=== PATIENT | female | born 1930 | race Caucasian/White ===

== ENCOUNTER 2019-02-15 07:37 | Emergency (ER) | payer MEDICARE, BC ==
[~2019-02-15] VITALS: Ht 157.5 cm; Wt 69.2 kg
[~2019-02-15 07:37] MED LIST: AMLO5TAB4 PO; CORE20CR PO; DOCU-144 PO; ENAL20TA PO; HYDR-906 PO; ISOS30TA67 PO; LEVO50TA89 PO; ONDA4TAB8 PO; PANT40TA3 PO
[2019-02-15 07:41] VITALS: Ht 157.5 cm; Wt 69.2 kg
[2019-02-15] MEDS ORDERED: SOD CHLORIDE 0.9% 1,000 ML IV STA (08:48)
[2019-02-15] MEDS ORDERED: ONDANSETRON 4 MG INJ IV STA (08:48)
[2019-02-15] MEDS ORDERED: morphine 2 MG INJ IV STA (08:48)
--- NOTE | 2019-02-15 09:03 | ERD ---
ER Documentation Chief Complaint Chief Complaint ABDOMINAL, LOWER BACK PAIN W/DIARRHEA HPI This is an 88-year-old female with a past medical history of hypertension the presents to the emergency department complaining of abdominal cramping for the past 48 hours. The patient indicates that she has had loose watery stools. She denies any recent antibiotics and has had no recent travel or hospitalizations. She indicates that the abdominal cramping is more prominent in the left lower quadrant. She states that the pain started to radiate to the back. She is had no frequency urgency or dysuria. She had no fevers or shaking or chills. She states the pain worsened this morning which prompted her to come to the emergency department and it is 7 out of 10 in intensity. Her past surgical history includes cholecystectomy. She had no chest pain. She has no productive or nonproductive cough. She is no shortness of breath at rest or exertion. She denies a headache. She said no fevers no shaking no chills. ROS All systems reviewed and are negative except as per history of present illness. Medications Home Meds Reported Medications Olopatadine* (Pataday*) 0.2% - 2.5 Ml Drops, 1 DROP BOTH EYES DAILY, EA 02/15/19 Metoprolol Succinate* (Toprol XL*) 50 Mg Tab.er.24h, 50 MG PO DAILY, #30 TAB 02/15/19 Losartan-Hydrochlorothiazide (Losartan-HCTZ) 100-12.5 Mg Tab, 1 TAB PO DAILY, TAB 02/15/19 Pantoprazole* (Pantoprazole*) 40 Mg Tablet.dr, 40 MG PO AC BREAKFAST, TAB 02/15/19 Levothyroxine Sodium* (Levothyroxine Sodium*) 50 Mcg Tablet, 50 MCG PO BEFORE BREAKFAST, #30 TAB 02/15/19 Amlodipine Besylate* (Norvasc*) 5 Mg Tablet, 5 MG PO DAILY, TAB 02/15/19 Discontinued Reported Medications Enalapril Maleate* (Enalapril Maleate*) 20 Mg Tablet, 20 MG PO BID, TAB 04/12/15 Pantoprazole* (Protonix*) 40 Mg Tablet.dr, 40 MG PO DAILY, TAB 04/12/15 Amlodipine Besylate* (Norvasc*) 5 Mg Tablet, 5 MG PO DAILY, TAB 04/12/15 Carvedilol* (Coreg CR*) 20 Mg Capsr, 20 MG PO DAILY, CAP 04/12/15 Levothyroxine Sodium* (Synthroid*) 50 Mcg Tablet, 50 MCG PO AC BREAKFAST, TAB 04/12/15 Isosorbide Mononitrate* (Isosorbide Mononitrate*) 30 Mg Tab.er.24h, 30 MG PO DAILY, TAB 04/12/15 Discontinued Scripts Docusate Sodium* (Colace*) 100 Mg Capsule, 100 MG PO BID, #20 CAP Prov:AUGUSTIN VINES MD 04/08/16 Hydrocodone Bit-Acetaminophen (Purdon) 5-325 Mg Tablet, 1 TAB PO Q4H PRN for PAIN for 20 Days, TAB Prov:AUGUSTIN VINES MD 04/08/16 Ondansetron Hcl* (Zofran*) 4 Mg Tablet, 4 MG PO Q8H PRN for NAUSEA AND/OR VOMITING, #30 TAB Prov:MARYSOL CHIRINOS MD 04/12/15 Allergies Allergies: Coded Allergies: Penicillins (Verified Allergy, Intermediate, 02/15/19) diltiazem (Verified Allergy, Unknown, 02/15/19) PMhx/Soc History of Surgery: Yes (GALLBLADDER) Anesthesia Reaction: No Hx Neurological Disorder: No Hx Respiratory Disorders: No Hx Cardiac Disorders: Yes (HTN) Hx Psychiatric Problems: No Hx Miscellaneous Medical Probl: No Hx Alcohol Use: No Hx Substance Use: No Hx Tobacco Use: No Smoking Status: Never smoker Physical Exam Vitals Vital Signs Date Temp Pulse Resp B/P (MAP) Pulse Ox O2 O2 Flow FiO2 Time Delivery Rate 02/15/19 76 16 123/60 97 Room Air 13:07 (81) 02/15/19 59 19 131/75 97 Room Air 10:30 (93) 02/15/19 98.1 81 18 158/74 98 07:41 (102) Physical Exam Constitutional:Well-developed. Well-nourished. HEENT:Normocephalic. Atraumatic.Pupils were equal round reactive to light. Moist mucous membranes.No tonsillar exudates. Neck: No nuchal rigidity. No lymphadenopathy. No posterior cervical spine tenderness or step-offs. Respiratory: Not using accessory muscles of respiration.Lungs were clear to auscultation bilaterally. No rhonchi. No rales. No wheezing. Cardiovascular: Regular rate regular rhythm.No murmurs. No rubs were appreciated.S1, S2 normal. Distal pulses are palpable 2+ bilaterally. GI: Abdomen was soft. Left lower quadrant tenderness. Non Distended. No pulsatile abdominal masses or bruits. No rebound. No guarding. Bowel sounds were hyperactive Muscle skeletal: Full range of motion of both the upper and lower extremities bilaterally.Normal muscle tone.No assymetrical calf tenderness or swelling. Skin: No petechia, no purpura. No lesions on the palms or the soles of the feet. No maculopapular rash. NEURO: Patient was alert, awake, orientated x3.No facial droop. Gait observed and normal with no ataxia.Speech had regular rate and rhythm. No focal neurological deficits. Result Diagram: 02/15/1992402/15/19924 Results 24 hrs Laboratory Tests Test 02/15/19 08:56 02/15/19 09:25 Urine Color STRAW Urine Clarity CLEAR Urine pH 7.0 Urine Specific Elizabeth 1.005 Urine Ketones NEGATIVE mg/dL Urine Nitrite NEGATIVE mg/dL Urine Bilirubin NEGATIVE mg/dL Urine Urobilinogen NEGATIVE mg/dL Urine Leukocyte Esterase NEGATIVE [place]/ul Urine Microscopic RBC 1 /HPF Urine Microscopic WBC 1 /HPF Urine Hemoglobin NEGATIVE mg/dL Urine Glucose NEGATIVE mg/dL Urine Total Protein 1+ mg/dl White Blood Count 5.1 10^3/ul Red Blood Count 3.65 10^6/ul Hemoglobin 12.0 g/dl Hematocrit 35.3 % Mean Corpuscular Volume 96.7 fl Mean Corpuscular Hemoglobin 32.9 pg Mean Corpuscular Hemoglobin Concent 34.0 g/dl Red Cell Distribution Width 11.6 % Platelet Count 276 10^3/UL Mean Platelet Volume 9.1 fl Immature Granulocytes % 0.800 % Neutrophils % 70.8 % Lymphocytes % 16.6 % Monocytes % 9.0 % Eosinophils % 2.0 % Basophils % 0.8 % Nucleated Red Blood Cells % 0.0 /100WBC Immature Granulocytes # 0.040 10^3/ul Neutrophils # 3.6 10^3/ul Lymphocytes # 0.9 10^3/ul Monocytes # 0.5 10^3/ul Eosinophils # 0.1 10^3/ul Basophils # 0.0 10^3/ul Nucleated Red Blood Cells # 0.0 10^3/ul Prothrombin Time 12.2 Sec Prothrombin Time Ratio 1.0 INR International Normalized Ratio 0.89 Activated Partial Thromboplast Time 28.2 Sec Sodium Level 134 mmol/L Potassium Level 4.2 mmol/L Chloride Level 97 mmol/L Carbon Dioxide Level 29 mmol/L Anion Gap 8 Blood Urea Nitrogen 13 mg/dl Creatinine 0.93 mg/dl Est Glomerular Filtrat Rate mL/min mL/min Glucose Level 101 mg/dl Calcium Level 10.1 mg/dl Total Bilirubin 0.4 mg/dl Direct Bilirubin 0.00 mg/dl Indirect Bilirubin 0.4 mg/dl Aspartate Amino Transf (AST/SGOT) 24 IU/L Alanine Aminotransferase (ALT/SGPT) 21 IU/L Alkaline Phosphatase 74 IU/L Troponin I < 0.012 ng/ml Total Protein 7.5 g/dl Albumin 4.1 g/dl Globulin 3.40 g/dl Albumin/Globulin Ratio 1.20 Amylase Level 72 U/L Lipase 132 U/L Current Medications Medications Dose Sig/Karen Start Time Status Last (Trade) Ordered Route PRN Stop Time Admin Dose Reason Admin Sodium 1,000 ml @ Q1H STAT 02/15/19 DC 02/15/19 Chloride 1,000 mls/hr IV 08:48 09:35 02/15/19 09:47 Morphine 2 mg ONCE STAT 02/15/19 DC Sulfate IV 08:48 (morphine) 02/15/19 08:59 Ondansetron 4 mg ONCE STAT 02/15/19 DC HCl (Zofran IV 08:48 Inj) 02/15/19 08:59 IV Flush 10 ml STK-MED 02/15/19 DC 02/15/19 (NS 10 ml) ONCE .ROUTE 10:32 10:56 02/15/19 10:33 Sodium 100 ml @ ud STK-MED 02/15/19 DC 02/15/19 Chloride ONCE .ROUTE 10:32 10:57 02/15/19 10:33 Iohexol 150 ml STK-MED 02/15/19 DC 02/15/19 (Omnipaque ONCE .ROUTE 10:32 10:57 300mg/ ml) 02/15/19 10:33 Ibuprofen 600 mg ONCE ONCE 02/15/19 DC (Motrin) PO 13:00 02/15/19 13:04 Procedures/MDM This patient presented to the emergency department with abdominal pain and was seen and evaluated by myself. My differential diagnosis included but was not limited to abdominal aortic aneurysm, appendicitis, pancreatitis, perforated peptic ulcer, perforated viscus, Boerhaaves syndrome or visceral pain such as diverticulitis, DKA, esophagitis, hepatitis or bowel obstruction. The patient was placed on a youth nutritional monitor, continuous pulse oximetry, and IV access was established by nursing staff. Patient given intravenous morphine and Zofran for analgesia control. I did a 12-lead EKG tracing to rule out for atypical myocardial fraction. 12 Lead EKG tracing ordered and reviewed by myself showed: Normal sinus rhythm of 62 bpm and no arrhythmia. ND interval normal. QRS duration normal. No ST segment elevation No ST segment depression. No changes consistent with acute ischemia. Due to the patient's physical exam findings I do feel is necessary to obtain a CT scan of the abdomen to rule out for possible diverticulitis or perforation. This is reviewed by the radiologist and indicate the followin. Mild intrahepatic and moderate to severe extrahepatic biliary ductal dilatation, unchanged from the examination of 2016. Laboratory correlation is advised. Further evaluation with MRI / MRCP of the abdomen without and with intravenous contrast is also recommended. 2. Bilateral renal cortical thinning with numerous small renal cysts. 3. Small hiatal hernia. 4. Thick-walled appearance of the gastric antrum may relate to nondistended state. Clinical correlation is advised. 5. Colonic diverticuli without evidence of acute diverticulitis. The patient felt comfortable being discharged home. I did indicate that the patient would benefit from an outpatient colonoscopy. With respect to the findings of the intrahepatic and severe extrahepatic biliary ductal dilatation at this time my clinical suspicion was low for an emergent need for an MRI or MRCP as the patient had no pain in the epigastric region or right upper qu adrant. The pain was localized to the left lower quadrant. The patient had no severe electrolyte abnormalities such as transaminitis or elevation of the patient's alkaline phosphatase. The patient was with her daughter they indicated that this could be done on an outpatient basis which they felt comfortable with. The patient was discharged home in fair condition. They were instructed to return to the emergency department at any time if there was any worsening of their condition. The patient stated they would follow up with their PCP in the next 24-48 hours to initiate a suitable medication regimen under the care of their PCP as well as to allow their PCP to monitor any drug reactions. The patient was discharged home with prescriptions after they gave informed consent to the new medication. They were also fully informed by myself on the adverse effects and adverse drug interactions in order to provide adequate safeguards to prevent possible adverse reactions to medications. Departure Diagnosis: Primary Impression: Diverticulosis Condition: AUGUSTIN Jiménez MD Feb 15, 2019 09:03
[2019-02-15] MEDS ORDERED: SOD CHLORIDE 0.9% 100 ML ONE (10:32)
[2019-02-15] MEDS ORDERED: IOHEXOL 300MG/ML 150 ML BTL ONE (10:32)
[2019-02-15] MEDS ORDERED: AMLO5TAB4 PO (10:52)
[2019-02-15] MEDS ORDERED: LEVO50TA7 PO (10:52)
[2019-02-15] MEDS ORDERED: LOSA1TAB28 PO (10:53)
[2019-02-15] MEDS ORDERED: PANT40TA4 PO (10:53)
[2019-02-15] MEDS ORDERED: METO-319 PO (10:54)
[2019-02-15] MEDS ORDERED: OLOP2.5D BOTH EYES (10:55)
[2019-02-15] MEDS ORDERED: IBUPROFEN 600 MG TAB PO ONE (13:00)
[2019-02-15 13:07] VITALS: BP 123/60; PULSE 76; RESP 16
== END 2019-02-15 13:10 | disposition home or self-care (01) ==
LOC: E/R 07:37
DX: K57.30 Diverticulosis of large intestine without perforation or abscess without bleeding (principal); I10 Essential (primary) hypertension
CPT/HCPCS: 36415; 74177; 80053; 81001; 82150; 83690; 84484; 85025; 85610; 85730; 87086; 93005; 99285; J7030; Q9967